=== PATIENT | female | born 1945 | race Caucasian/White ===

== ENCOUNTER 2023-07-23 14:02 | Emergency (ER) | payer MEDICARE, OTHER, SELFPAY ==
[2023-07-23] VITALS (15 sets, daily range): BP systolic 139–202; BP diastolic 67–99; PULSE 70–75; RESP 20; TEMP 36.2; O2SAT 90–96; BMI 42.0
[2023-07-23 14:37] LABS: Troponin, Point-of-Care* 0.01 ng/ml (0.01-0.04)
--- NOTE | 2023-07-23 14:42 | CRLHL7_ITS ---
For Patients: As a result of the Century Cures Act, medical imaging exams and procedure reports are released immediately into your electronic medical record. You may view this report before your referring provider. If you have questions, please contact your health care provider. INDICATION: . RIGHT FLANK PAIN TECHNIQUE: CT abdomen and pelvis without contrast. COMPARISON: None. FINDINGS: Lower chest: Calcified granulomas. 3 millimeter lingular indeterminate pulmonary nodule. Atherosclerotic calcifications. ABDOMEN: Liver: Normal attenuation. Gallbladder and biliary: Cholecystectomy. Normal caliber bile ducts. Spleen: Calcified splenic granuloma. Pancreas: The noncontrast pancreas is homogeneous in attenuation without peripancreatic inflammatory changes or ductal dilatation. Adrenal glands: Normal adrenal glands. Kidneys and ureters: Moderate left-sided hydroureteronephrosis secondary to a 6 and adjacent to millimeter stone within the distal left ureter. Additional 3 millimeter stone within the left UVJ. Right-sided hydroureteronephrosis without discrete stone. Additional bilateral nonobstructing nephrolithiasis. GI tract: The stomach is relatively decompressed. Normal caliber small and large bowel loops. Normal appendix. Colonic diverticulosis without diverticulitis. Vascular structures: Normal caliber aorta with atherosclerotic calcifications. Lymph nodes: No lymphadenopathy in the abdomen or pelvis by size criteria. Peritoneum: No free air, free fluid, or focal drainable fluid collection. PELVIS: Genitourinary system: Normal urinary bladder. Hysterectomy. Ovaries are not visualized. SKELETAL STRUCTURES AND SOFT TISSUES: Lumbar spondylosis. IMPRESSION: Moderate left-sided hydroureteronephrosis secondary to a 6 and adjacent to millimeter stone within the distal left ureter. Additional 3 millimeter stone within the left UVJ. Right-sided hydroureteronephrosis without discrete stone, for which differential considerations include a blood clot, infectious process, or stricture. Additional bilateral nonobstructing nephrolithiasis. 3 millimeter lingular indeterminate pulmonary nodule. If the patient is considered low risk for primary lung cancer, these do not require additional follow-up. If the patient is considered high-risk for primary lung cancer, consider optional unenhanced chest CT in 12 months to document stability and to assess for underlying malignant potential per Fleischner society guidelines. Please note that all CT scans at this facility use dose modulation, iterative reconstruction, and/or weight-based dosing when appropriate to reduce radiation dose to as low as reasonably achievable. Dictated by Stuart Watt MD @ 07/23/2023 3:53:51 PM (Electronically Signed)
--- NOTE | 2023-07-23 14:45 | ED.GENADULT ---
HPI - General Adult General Chief complaint: Dizziness/Vertigo Stated complaint: passing kidney-pain level 11heart tightness-dizzy- Time Seen by Provider: 07/23/23 14:23 Source: patient Limitations: no limitations History of Present Illness HPI narrative: Rasheeda is an 78-year-old female presenting to the ER today several concerns. Patient states that for the last 3-4 weeks she has felt very dizzy. She states that when she goes from a sitting to a standing position she has to hold on to something because she feels off balance in the room starts to move around her. She states that when she goes from a sitting to a lying position at night the room also starts to move around her. If she sits still she is not dizzy. She states that she is chronically nauseated but has not vomited. She states that she also has this chest pressure that she describes as a dull ache that she has felt for about a week or so nothing seems to make it better or worse, not associated with physical activity. It is not constant. She often for forgets that it is there. She is unsure if it is associated with her episodes of dizziness. She states that she has chronically blurry vision secondary to cataracts and this is not changed, she denies diplopia. She is also concerned that she is passing a kidney stone, she can complains of right-sided flank pain that radiates out to the anterior abdomen. She denies difficulty with urination, no blood in her urine. She states that she has chills intermittently. She denies any measured fevers. Review of systems is grossly positive for fatigue, dizziness, chest pressure, constipation, abdominal discomfort, feeling unstable on her feet. She denies headache. Past medical history significant for coronary artery disease status post stenting, hyperlipidemia, hypertension, left bundle-branch block. She denies any history of diabetes or thyroid disease. 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 States that her last scan was about 6 months ago and was unchanged. Related Data Home Medications Medication Instructions Recorded Confirmed amlodipine 5 mg tablet 5 mg PO DAILY 07/23/23 07/23/23 furosemide 20 mg tablet 20 mg PO DAILY 07/23/23 07/23/23 metoprolol succinate 50 mg 50 mg PO DAILY 07/23/23 07/23/23 tablet,extended release 24 hr nitroglycerin 0.4 mg sublingual sublingual 07/23/23 tablet rosuvastatin 20 mg tablet 20 mg PO QPM 07/23/23 07/23/23 sertraline 100 mg tablet 100 mg PO DAILY 07/23/23 07/23/23 warfarin 4 mg tablet 4 mg PO DAILY 07/23/23 07/23/23 Allergies Allergy/AdvReac Type Severity Reaction Status Date / Time levofloxacin [From Levaquin] Allergy Unknown Verified 07/23/23 14:17 Review of Systems Status of ROS: Reports: 10 or more systems reviewed and unremarkable except as noted in History and below [facility] Social History Smoking Status: Never smoker How often do you have a drink containing alcohol: never AUDIT-C Alcohol total score: 0 Non-prescribed substance use: denies use Exam Narrative: Exam Narrative: Well-nourished well-developed patient in no acute distress. Alert and oriented x3. Patient has a difficult time answering yes or no questions without some mild tangential thinking. Mood and affect are appropriate. Thoughts are goal oriented and rational. No magical thinking noted. Patient speaks in full sentences without needing to catch her breath. HEENT: Normocephalic atraumatic. Pupils are equally round reactive to light. Extraocular muscles are intact. Conjunctivae are moist without any icterus noted. Moist mucous membranes. Posterior pharynx is normal. Neck is soft without any lymphadenopathy or thyromegaly. No masses are appreciated. Cardiovascular: Heart is regular rate and rhythm S1 and S2 are present without any murmurs. Lungs: Clear to auscultation bilaterally no wheezes rhonchi or rales are appreciated. Patient takes deep breaths without any discomfort. Abdomen: Soft and nontender nondistended with normal bowel sounds. No CVA tenderness. Extremities: Bilateral lower extremities are without pitting edema. Normal DP and PT pulses. Skin: Well perfused without any obvious rashes. Const: Vital Signs, click to edit/add: Vital Signs - 24 hr 07/23/23 14:09 07/23/23 15:30 07/23/23 15:31 Temperature 97.1 F L Pulse Rate 72 71 Pulse Rate [Pulse Oximeter] 71 Respiratory Rate 20 Blood Pressure 154/81 H Blood Pressure [Ri ght Upper Arm] 202/99 H Pulse Oximetry 96 95 91 Oxygen Delivery Me thod Room Air 07/23/23 16:00 07/23/23 16:02 07/23/23 16:30 Temperature Pulse Rate 73 74 73 Pulse Rate [Pulse Oximeter] Respiratory Rate Blood Pressure 142/87 H Blood Pressure [Ri ght Upper Arm] Pulse Oximetry 92 90 95 Oxygen Delivery Me thod 07/23/23 16:32 07/23/23 17:00 07/23/23 17:02 Temperature Pulse Rate 73 72 71 Pulse Rate [Pulse Oximeter] Respiratory Rate Blood Pressure 155/70 H 155/67 H Blood Pressure [Ri ght Upper Arm] Pulse Oximetry 95 95 96 Oxygen Delivery Me thod 07/23/23 17:03 07/23/23 17:30 07/23/23 17:31 Temperature Pulse Rate 70 71 71 Pulse Rate [Pulse Oximeter] Respiratory Rate Blood Pressure 139/75 Blood Pressure [Ri ght Upper Arm] Pulse Oximetry 92 90 91 Oxygen Delivery Me thod Course Course ED Course: IV was established. He EKG, read by me, shows normal sinus rhythm with a left bundle-branch block, pulse 76. CBC was unremarkable. INR subtherapeutic. Electrolytes unremarkable. Lactate elevated at 3.8. Normal troponin. Urine showing 3+ blood, 50-100 rbc's, no evidence of infection. Patient negative for COVID influenza RSV. Patient received 500 mL of normal saline and Zofran. She also received 15 mg of IV Toradol. While in the ER patient states that her pain went from in 11 to a 9, then to a 7 after Toradol. She then he urinated and her pain went to a 0. She believes that she passed her right-sided stone. Her abdominal CT scan does not show any stone on the right side, does show a 6 mm and a 2 mm stone on the left with bilateral hydroureteronephrosis. Her blood pressure on arrival was elevated at 2 0 , repeat after pain was better was 139/75. I did consult with urologist see Dr. Cruz, urologist on-call at [facility], he recommended either outpatient treatment or admission based on how the patient was feeling. I discussed the findings with the patient we discussed her options. Given her evidence of bilateral hydroureter nephrosis and elevated lactate it would not be out of line to admit her to urology service for evaluation. The other option would be to follow up as an outpatient with Urology. At this time patient is feeling so much better that she really requests outpatient follow-up and does not feel like she needs to be admitted. As far as her dizziness we discussed benign paroxysmal vertigo. Patient tells me she has been diagnosed with this before and knows the exercises to do at home. Given that her dizziness does go away when she is sitting still I do not think that she is having a stroke or having any more serious pathology at this time. Vital Signs Vital signs: Initial Vital Signs Temperature 97.1 F L 07/23/23 14:09 Temperature Source Temporal Artery Scan 07/23/23 14:09 Pulse Rate 71 07/23/23 14:09 Respiratory Rate 20 07/23/23 14:09 Blood Pressure 202/99 H 07/23/23 14:09 Blood Pressure Mean 133 H 07/23/23 14:09 Blood Pressure Position Supine 07/23/23 14:09 Pulse Oximetry 96 07/23/23 14:09 Oxygen Delivery Method Room Air 07/23/23 14:09 Vital Signs Temperature 97.1 F L 07/23/23 14:09 Pulse Rate 71 07/23/23 14:09 Respiratory Rate 20 07/23/23 14:09 Blood Pressure 202/99 H 07/23/23 14:09 Pulse Oximetry 96 07/23/23 14:09 Oxygen Delivery Method Room Air 07/23/23 14:09 Temperature 97.1 F L 07/23/23 14:09 Pulse Rate 71 07/23/23 17:31 Respiratory Rate 20 07/23/23 14:09 Blood Pressure 139/75 07/23/23 17:31 Pulse Oximetry 91 07/23/23 17:31 Oxygen Delivery Method Room Air 07/23/23 14:09 Medical Decision Making MDM Narrative Medical decision making narrative: 78-year-old female presenting with multiple issues today. She does have bilateral renal stones with bilateral hydroureter nephrosis. Again options regarding admission versus outpatient urology follow-up were discussed and patient would like to do outpatient follow-up at this time. I will send her home with some Percocet and Zofran in the event she has pain on the left or returning pain on the right. She will call the urologist 1st thing in the morning tomorrow. Dizziness, mild and consistent with benign positional vertigo. Patient will do outpatient Koko maneuvers and manage this as she has managed in the past. Return to the ER if she develops worsening symptoms including fever or vomiting. Patient and her family were in agreement with everything we discussed and had no other questions. Medical Records Medical records reviewed: Yes I reviewed the patient's medical records Lab Data Lab results reviewed: Yes I reviewed the patient's lab results Labs: Lab Results 07/23/23 07/23/23 07/23/23 Range/Units 14:25 15:00 16:08 WBC 7.92 (4.50-11.00) K/uL RBC 5.19 (4.00-5.20) m/uL Hgb 15.1 (12.0-16.0) gm/dL Hct 46.8 (33.0-51.0) % MCV 90 (80-100) fL MCH 29 (26-34) pg MCHC 32 (32-36) gm/dL RDW Coeff of Hardy 13.0 (11.5-15.5) % Plt Count 252 (140-440) K/uL Neut % (Auto) 70.3 (42.0-72.0) % Lymph % (Auto) 20.2 (20-44) % [place] % (Auto) 6.8 (0.0-11.0) % Eos % (Auto) 1.5 (0.0-7.0) % Baso % (Auto) 0.1 (0.0-3.0) % Neut # (Auto) 5.56 (1.7-7.0) K/uL Lymph # (Auto) 1.60 (0.90-2.90) K/uL [place] # (Auto) 0.50 (0.00-0.90) K/UL Eos # (Auto) 0.12 (0.00-0.50) K/uL Baso # (Auto) 0.01 (0.00-0.30) K/uL Abs Immat Gran (auto) 0.09 (0.00-0.30) K/uL Imm/Tot Granulo (auto) 1.1 % INR 2.22 H (0.91-1.10) Sodium 140 (135-149) mmol/L Potassium 3.4 L (3.6-5.1) mmol/L Chloride 105 (96-114) mmol/L Carbon Dioxide 24 (20-32) mmol/L Anion Gap 11 (7-15) mEq/L BUN 13 (7-30) mg/dL Creatinine 1.0 (0.5-1.5) mg/dL Estimated Creat Clear 32.23 Estimated GFR 57 ml/min Glucose 137 H (60-115) mg/dL Lactate 3.8 H (0.5-1.9) mmol/L Calcium 9.6 (8.4-10.6) mg/dL Total Bilirubin 0.9 (0.1-1.5) mg/dL Direct Bilirubin 0.0 (0.0-0.5) mg/dL AST 32 (12-35) U/L ALT 27 (4-35) U/L Alkaline Phosphatase 72 (40-150) U/L Troponin I < 0.01 L (0.01-0.04) ng/mL C-Reactive Protein 0.6 (0.5-1.0) mg/dL Total Protein 7.5 (6.0-8.3) g/dL Albumin 4.3 (3.3-5.0) g/dL Lipase 61 (23-300) U/L TSH 3.000 (0.270-4.20) uIU/mL Urine Color Dark yellow (Yellow) Urine Appearance Slightly Cloudy A (Clear) Urine pH 6.0 (5.0-8.5) Ur Specific [place] 1.015 (1.000-1.030) Urine Protein Trace A (Negative) Urine Glucose (UA) Negative (Negative) Urine Ketones Negative (Negative) Urine Blood 3+ A (Negative) Urine Nitrite Negative (Negative) Urine Bilirubin Negative (Negative) Urine Urobilinogen 0.2 (0.2-1.0) Ur Leukocyte Esterase Negative (Negative) Urine RBC 50-100 A (0-2) Urine WBC 0-2 (0-5) Ur Squamous Epith Cells None (None-Few) Amorphous Sediment Few A (None) Urine Bacteria Few A (None) SARS-CoV-2 (PCR) Negative SARS-CoV-2 (Negative) Influenza Type A (PCR) Negative PCR FLU A (Negative) Influenza Type B (PCR) Negative PCR FLU B (Negative) RSV (PCR) Negative PCR RSV (Negative) POC Troponin I 0.01 (0.01-0.04) ng/ml Imaging Data CT scan - abdomen: Attestation: I have reviewed the pertinent imaging results. Radiologist's impression: CT abdomen and pelvis without contrast. COMPARISON: None. FINDINGS: Lower chest: Calcified granulomas. 3 millimeter lingular indeterminate pulmonary nodule. Atherosclerotic calcifications. ABDOMEN: Liver: Normal attenuation. Gallbladder and biliary: Cholecystectomy. Normal caliber bile ducts. Spleen: Calcified splenic granuloma. Pancreas: The noncontrast pancreas is homogeneous in attenuation without peripancreatic inflammatory changes or ductal dilatation. Adrenal glands: Normal adrenal glands. Kidneys and ureters: Moderate left-sided hydroureteronephrosis secondary to a 6 and adjacent to millimeter stone within the distal left ureter. Additional 3 millimeter stone within the left UVJ. Right-sided hydroureteronephrosis without discrete stone. Additional bilateral nonobstructing nephrolithiasis. GI tract: The stomach is relatively decompressed. Normal caliber small and large bowel loops. Normal appendix. Colonic diverticulosis without diverticulitis. Vascular structures: Normal caliber aorta with atherosclerotic calcifications. Lymph nodes: No lymphadenopathy in the abdomen or pelvis by size criteria. Peritoneum: No free air, free fluid, or focal drainable fluid collection. PELVIS: Genitourinary system: Normal urinary bladder. Hysterectomy. Ovaries are not visualized. SKELETAL STRUCTURES AND SOFT TISSUES: Lumbar spondylosis. IMPRESSION: Moderate left-sided hydroureteronephrosis secondary to a 6 and adjacent to millimeter stone within the distal left ureter. Additional 3 millimeter stone within the left UVJ. Right-sided hydroureteronephrosis without discrete stone, for which differential considerations include a blood clot, infectious process, or stricture. Additional bilateral nonobstructing nephrolithiasis. 3 millimeter lingular indeterminate pulmonary nodule. If the patient is considered low risk for primary lung cancer, these do not require additional follow-up. If the patient is considered high-risk for primary lung cancer, consider optional unenhanced chest CT in 12 months to document stability and to assess for underlying malignant potential per Fleischner society guidelines. ECG Data Attestation: I personally reviewed and interpreted this ECG as follows: Discharge Plan Discharge Clinical Impression: Benign paroxysmal positional vertigo, Kidney stone Patient Disposition: Home, Self-Care Condition: Improved Additional Instructions: You should call your urologist 1st thing in the morning and tell them that you were seen in the emergency room on [address] and you were diagnosed with bilateral kidney stones with bilateral hydroureteronephrosis and that the on-call urologist suggest you make an appointment 1st thing in the morning. If you develop vomiting or fevers, return to the ER right away. Pain medications and nausea medications sent to [facility]. Prescriptions: No Action metoprolol succinate 50 mg tablet extended release 24 hr 50 mg PO DAILY sertraline 100 mg tablet 100 mg PO DAILY amlodipine 5 mg tablet 5 mg PO DAILY warfarin 4 mg tablet 4 mg PO DAILY nitroglycerin 0.4 mg tablet, sublingual sublingual furosemide 20 mg tablet 20 mg PO DAILY rosuvastatin 20 mg tablet 20 mg PO QPM Follow Up/Referrals: Kinza Vasquez DO [Primary Care Provider] - Stand Alone Forms: [employer] Info Instructions
[2023-07-23 14:52] LABS: Lactate* 3.8 mmol/L (0.5-1.9)
[2023-07-23] MEDS: ONDANSETRON 2 MG/ML inj 4 MG IVP (14:56)
[2023-07-23] MEDS: 0.9 % SODIUM CHLORIDE 500 ML 500 ML IV (14:56)
[2023-07-23 14:59] LABS: Basophils Absolute Auto 0.01 K/uL (0.00-0.30); Basophils Percent Auto 0.1 % (0.0-3.0); Eosinophils Absolute Auto 0.12 K/uL (0.00-0.50); Eosinophils Percent Auto 1.5 % (0.0-7.0); Hematocrit 46.8 % (33.0-51.0); Hemoglobin* 15.1 gm/dL (12.0-16.0); Immature Granulocytes Abs Auto 0.09 K/uL (0.00-0.30); Immature Granulocytes Pct Auto 1.1 %; Lymphocytes Percent Auto 20.2 % (20-44); Mean Corpuscular HGB Conc 32 gm/dL (32-36); Mean Corpuscular Hemoglobin 29 pg (26-34); Mean Corpuscular Volume 90 fL (80-100); Monocytes Percent Auto 6.8 % (0.0-11.0); Neutrophils Absolute Auto 5.56 K/uL (1.7-7.0); Neutrophils Percent Auto 70.3 % (42.0-72.0); Platelet Count* 252 K/uL (140-440); Red Blood Count 5.19 m/uL (4.00-5.20); White Blood Count* 7.92 K/uL (4.50-11.00)
[2023-07-23 15:09] LABS: Albumin* 4.3 g/dL (3.3-5.0); Chloride* 105 mmol/L (96-114)
[2023-07-23 15:10] LABS: Potassium* 3.4 mmol/L (3.6-5.1); Sodium* 140 mmol/L (135-149)
[2023-07-23 15:12] LABS: Alkaline Phosphatase* 72 U/L (40-150); Anion Gap 11 mEq/L (7-15); Aspartate Amino Transferase* 32 U/L (12-35); Bilirubin Total* 0.9 mg/dL (0.1-1.5); Blood Urea Nitrogen* 13 mg/dL (7-30); Carbon Dioxide* 24 mmol/L (20-32); Est. Creatinine Clearance* 32.23; Estimated Glomerular Filt Rate 57 ml/min; INR 2.22 (0.91-1.10); Prothrombin Time 25.7 Seconds; Total Protein* 7.5 g/dL (6.0-8.3)
[2023-07-23 15:13] LABS: Alanine Aminotransferase* 27 U/L (4-35); Calcium* 9.6 mg/dL (8.4-10.6); Glucose* 137 mg/dL (60-115); Lipase* 61 U/L (23-300)
[2023-07-23 15:15] LABS: C Reactive Protein* 0.6 mg/dL (0.5-1.0)
[2023-07-23 15:19] LABS: Slide Review Reflex No
[2023-07-23] MEDS: KETOROLAC 30 MG/ML inj 15 MG IVP (15:28)
[2023-07-23 15:37] LABS: Troponin I* < 0.01 ng/mL (0.01-0.04)
[2023-07-23 15:50] LABS: PCR FLU A Negative PCR FLU A (Negative); PCR FLU B Negative PCR FLU B (Negative); PCR RSV Negative PCR RSV (Negative)
[2023-07-23 16:15] LABS: Appearance Urine Slightly Cloudy (Clear); Bilirubin Urine Negative (Negative); Blood Urine 3+ (Negative); Color Urine Dark yellow (Yellow); Glucose Urine Negative (Negative); Ketones Urine Negative (Negative); Leukocyte Esterase Urine Negative (Negative); Nitrite Urine Negative (Negative); Protein Urine Trace (Negative); Specific Gravity Urine 1.015 (1.000-1.030); Urobilinogen Urine 0.2 (0.2-1.0)
[2023-07-23 16:26] LABS: Amorphous Sediment Urine Few; Bacteria Urine Few; RBC Urine 50-100 (0-2); WBC Urine 0-2 (0-5)
[2023-07-23 16:27] LABS: SARS PCR* Negative SARS-CoV-2 (Negative)
== END 2023-07-23 18:51 | disposition home or self-care (01) ==
PROVIDERS: Emergency Provider Family Medicine; PCP Family Medicine
DX: N20.0 Calculus of kidney (principal); H81.10 Benign paroxysmal vertigo, unspecified ear
CPT/HCPCS: 36415; 74176; 80048; 80076; 81001; 83605; 83690; 84443; 84484; 85025; 85610; 86140; 87086; 87631; 93005; 94761; 96374; 96375; 99284; 99285; J1885; J2405; J7120

== ENCOUNTER 2025-01-31 13:39 | Outpatient (REF) | payer MEDICARE, OTHER, SELFPAY ==
[2025-01-31 14:11] LABS: Appearance Urine Cloudy (Clear); Bilirubin Urine Negative (Negative); Blood Urine 3+ (Negative); Color Urine Yellow (Yellow); Glucose Urine Negative (Negative); Ketones Urine Negative (Negative); Leukocyte Esterase Urine 3+ (Negative); Nitrite Urine Positive (Negative); Protein Urine 2+ (Negative); Urobilinogen Urine 0.2 (0.2-1.0)
[2025-01-31 14:40] LABS: Bacteria Urine Moderate; Squamous Epithelial Cell Urine Few (None-Few); WBC Urine 50-100 (0-5)
== END 2025-01-31 13:40 | disposition home or self-care (01) ==
LOC: NPINS 13:39
PROVIDERS: PCP Family Medicine; Visit Provider Nurse Practitioner Gerontology
DX: R82.71 Bacteriuria (principal); R53.1 Weakness; B96.20 Unspecified Escherichia coli [E. coli] as the cause of diseases classified elsewhere; B96.89 Other specified bacterial agents as the cause of diseases classified elsewhere
CPT/HCPCS: 81001; 87086

== ENCOUNTER 2025-02-02 12:09 | Outpatient (REF) | payer SELFPAY ==
[2025-02-02 13:33] LABS: C.Difficile Negative (Negative); CDIFFEPI 027 PRESUMPTIVE NEGATIVE (Negative)
== END 2025-02-02 12:10 | disposition home or self-care (01) ==
LOC: NPINS 12:09
PROVIDERS: PCP Family Medicine; Visit Provider Family Medicine
DX: R19.7 Diarrhea, unspecified (principal)
CPT/HCPCS: 87493